=== PATIENT | female | born 1995 ===

== ENCOUNTER 2019-12-15 09:21 | Emergency (ER) | payer OTHER ==
[~2019-12-15] VITALS: Ht 152.4 cm; Wt 58.1 kg
[2019-12-15] MEDS ORDERED: [UNRECOGNIZED DRUG - OTHER] (09:44)
== END 2019-12-15 14:39 | disposition home or self-care (01) ==
LOC: ER 09:21
DX: R30.0 Dysuria (principal)

== ENCOUNTER 2019-12-16 19:32 | Emergency (ER) | payer OTHER ==
[~2019-12-16] VITALS: Ht 152.4 cm; Wt 57.6 kg
[~2019-12-16 19:32] MED LIST: [UNRECOGNIZED DRUG - OTHER]
== END 2019-12-16 22:59 | disposition home or self-care (01) ==
LOC: ER 19:32
DX: R00.2 Palpitations (principal); R53.81 Other malaise; T49.0X5A Adverse effect of local antifungal, anti-infective and anti-inflammatory drugs, initial encounter; N39.0 Urinary tract infection, site not specified

== ENCOUNTER 2019-12-19 09:35 | Emergency (ER) | payer OTHER ==
[~2019-12-19] VITALS: Ht 152.4 cm; Wt 59.0 kg
[2019-12-19] MEDS ORDERED: CEFUROXIME250 MG PO (09:44)
== END 2019-12-19 11:35 | disposition home or self-care (01) ==
LOC: ER 09:35
DX: N39.0 Urinary tract infection, site not specified (principal)

== ENCOUNTER 2020-02-06 11:31 | Emergency (ER) | payer OTHER ==
[~2020-02-06] VITALS: Ht 154.9 cm; Wt 61.2 kg
[~2020-02-06 11:31] MED LIST changes: +CEFUROXIME250 MG PO
== END 2020-02-06 12:52 | disposition home or self-care (01) ==
LOC: ER 11:31
DX: N39.0 Urinary tract infection, site not specified (principal)